=== PATIENT | female | born 2000 | race Caucasian/White ===

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

== ENCOUNTER 2022-01-31 08:14 | Emergency (ER) | payer MEDICAID ==
[~2022-01-31] VITALS: Ht 165.1 cm; Wt 0.6 kg
[2022-01-31 08:24] VITALS: BP 125/79
[2022-01-31 08:52] LABS: CLARITY,URINE CLEAR (Clear); GLUCOSE, URINE NEGATIVE (Neg); KETONES,URINE NEGATIVE (Neg); LEUKOCYTE ESTERASE ,URINE NEGATIVE (Neg); NITRITES, URINE NEGATIVE (Neg); OCCULT BLOOD,URINE TRACE-INTACT (Neg); PH,URINE 6.5 (4.8-8.0); PROTEIN,URINE NEGATIVE (Neg); UROBILINOGEN,URINE 0.2 E.U/dL (0.2-1.0)
[2022-01-31 08:55] LABS: COLOR,URINE STRAW (Yellow); UA COLLECTION TYPE CLN CATCH MIDSTREAM
[2022-01-31 08:56] LABS: BACTERIA,URINE NONE SEEN /HPF (Neg); MUCUS STRANDS NONE SEEN /LPF (Neg); RBC,URINE 0-2 /HPF (0-2); SQUAMOUS EPITHELIAL CELL,UR FEW /LPF (FEW); URINE HCG NEGATIVE (NEG); WBC,URINE NONE SEEN /HPF (0-4)
[2022-01-31] MEDS ORDERED: PHEN-824 PO ×3 (09:45→10:04)
[2022-01-31] MEDS ORDERED: NITR100C6 PO ×3 (09:45→10:04)
== END 2022-01-31 10:05 | disposition home or self-care (01) ==
LOC: ER 08:14
DX: R30.0 Dysuria (principal); K21.9 Gastro-esophageal reflux disease without esophagitis
CPT/HCPCS: 81001; 81025; 99283